=== PATIENT | male | born 1955 | race Caucasian/White ===

== ENCOUNTER 2017-06-13 05:46 | Day surgery (SDC) | payer BC ==
[~2017-06-13] VITALS: Ht 175.3 cm; Wt 93.9 kg
[~2017-06-13 05:46] MED LIST: DIOVAN HCT 31 TABLE1 PO; ZANTAC300 MG PO
[2017-06-13] MEDS ORDERED: FLAX OIL1000 MG PO (06:45)
[2017-06-13 07:03] VITALS: BP 135/94
[2017-06-13] MEDS ORDERED: PERCOCET 5/31 TABLET PO (09:14)
[2017-06-13] MEDS ORDERED: COLACE100 MG PO (09:14)
[2017-06-13 10:00] VITALS: BP 116/81
[2017-06-13 11:03] VITALS: BP 108/70
== END 2017-06-13 13:14 | disposition home or self-care (01) ==
LOC: SDC 05:46
PROC: 0WUF4JZ Supplement Abdominal Wall with Synthetic Substitute, Percutaneous Endoscopic Approach (ICD-10-PCS; principal; 2017-06-13)
DX: K42.9 Umbilical hernia without obstruction or gangrene (principal); I10 Essential (primary) hypertension; K21.9 Gastro-esophageal reflux disease without esophagitis; E78.5 Hyperlipidemia, unspecified
CPT/HCPCS: 88302; C1781; J0690; J1100; J1170; J1885; J2001; J2405; J2710; J2765; J2795; J3475; Q0175; S0020